=== PATIENT | male | born 1955 | race Caucasian/White ===

== ENCOUNTER 2017-10-24 12:34 | Observation (INO) | payer MEDICAID ==
[2017-10-24 12:36] VITALS: BMI 31.9
[2017-10-24] MEDS ORDERED: Sodium Chloride 0.9% 1,000 ML IV STA (12:45)
--- NOTE | 2017-10-24 13:21 | RAD ---
Date of service: 10/24/2017 HISTORY: admission COMPARISON: No prior. FINDINGS: LUNGS: No active pulmonary disease. PLEURA: No significant pleural effusion identified, no pneumothorax apparent. CARDIOVASCULAR: Normal. OSSEOUS STRUCTURES: No significant abnormalities. VISUALIZED UPPER ABDOMEN: Normal. OTHER FINDINGS: None. IMPRESSION: No active disease.
--- NOTE | 2017-10-24 13:36 | ED PDOC ---
Arrival/HPI - General Historian: Patient <Johanne Rome A - Last Filed: 10/24/17 22:26> <John Masterson - Last Filed: 10/28/17 18:10> - General Chief Complaint: Dizziness/Lightheaded Time Seen by Provider: 10/24/17 12:42 - History of Present Illness Narrative History of Present Illness (Text): 10/24/17 13:17 62yo male with pmhx of hypertension, Diabetes, hyperlipdemia who present with complaint of dizziness x 15days and head numbness/pain. He also report tinnitus. States he almost passed out today. Describes the dizziness as him been light headed. He otherwise denies chest pain, SOB, diaphoresis, focal weakness, slurred speech, visual changes, nausea, vomiting, diarrhea, URI symptoms, any other complaint. (Johanne Rome A) Past Medical History - Provider Review Nursing Documentation Reviewed: Yes - Cardiac Hx Hypertension: Yes - Pulmonary Hx Respiratory Disorders: No - Neurological Hx Neurological Disorder: No - HEENT Hx HEENT Disorder: No - Renal Hx Renal Disorder: No - Endocrine/Metabolic Hx Diabetes Mellitus Type 1: Yes - Hematological/Oncological Hx Blood Disorders: No - Integumentary Hx Dermatological Disorder: No - Musculoskeletal/Rheumatological Hx Musculoskeletal Disorders: No - Gastrointestinal Hx Gastrointestinal Disorders: No - Genitourinary/Gynecological Hx Genitourinary Disorders: No - Psychiatric Hx Psychophysiologic Disorder: No Hx Substance Use: No <Johanne Rome A - Last Filed: 10/24/17 22:26> Family/Social History - Physician Review Nursing Documentation Reviewed: Yes Family/Social History: Unknown Family HX Smoking Status: Never Smoked Hx Alcohol Use: No Hx Substance Use: No <Johanne Rome A - Last Filed: 10/24/17 22:26> Allergies/Home Meds <Johanne Rome A - Last Filed: 10/24/17 22:26> <John Masterson - Last Filed: 10/28/17 18:10> Allergies/Adverse Reactions: Allergies No Known Allergies Allergy (Verified 10/24/17 12:35) Home Medications: Home Meds Medication Instructions Recorded Confirmed Aspirin [Aspirin Chewable] 81 mg PO 10/24/17 Ergocalciferol [Drisdol 50,000 1.25 mg PO QWK 10/24/17 10/24/17 Intl Units Cap] Gabapentin [Neurontin] 600 mg PO TID 10/24/17 10/24/17 Insulin Glargine,Hum.rec.anlog 75 unit SQ HS 10/24/17 10/24/17 [Basaglar Kwikpen U-100] Insulin Lispro [Humalog Kwikpen 5 units SC ACL 10/24/17 10/24/17 U-100] Insulin Lispro [Humalog Kwikpen 10 units SC BRKDIN 10/24/17 10/24/17 U-100] Losartan Potassium [Cozaar] 100 mg PO DAILY 10/24/17 10/24/17 Meclizine HCl [Motion Sickness II] 25 mg PO Q8 PRN 10/24/17 10/24/17 Multivitamin with Iron [Tab-A-Tess 1 tab PO DAILY 10/24/17 10/24/17 with Iron] Simvastatin [Zocor] 20 mg PO HS 10/24/17 10/24/17 Review of Systems - Physician Review All systems were reviewed & negative as marked: Yes - Review of Systems Constitutional: Normal Eyes: Normal ENT: Normal Respiratory: Normal Cardiovascular: Normal Gastrointestinal: Normal Genitourinary Male: Normal Musculoskeletal: Normal Skin: Normal Neurological: Headache, Dizziness. absent: Focal Weakness, Speech Changes, Facial Droop Endocrine: Normal Hemo/Lymphatic: Normal Psychiatric: Normal <Johanne Rome A - Last Filed: 10/24/17 22:26> Physical Exam Vital Signs Reviewed: Yes Temperature: Febrile Blood Pressure: Normal Pulse: Regular Respiratory Rate: Normal Appearance: Positive for: Well-Appearing, Non-Toxic, Comfortable Pain Distress: None Mental Status: Positive for: Alert and Oriented X 3 - Systems Exam Head: Present: Atraumatic, Normocephalic Pupils: Present: PERRL Extroacular Muscles: Present: EOMI Conjunctiva: Present: Normal Mouth: Present: Moist Mucous Membranes Neck: Present: Normal Range of Motion Respiratory/Chest: Present: Clear to Auscultation, Good Air Exchange. No: Respiratory Distress, Accessory Muscle Use Cardiovascular: Present: Regular Rate and Rhythm, Normal S1, S2. No: Murmurs Abdomen: No: Tenderness, Distention, Peritoneal Signs Back: Present: Normal Inspection Upper Extremity: Present: Normal Inspection. No: Cyanosis, Edema Lower Extremity: Present: Normal Inspection. No: Edema Neurological: Present: GCS=15, CN II-XII Intact, Speech Normal, Motor Func Grossly Intact, Normal Sensory Function, Normal Cerebellar Funct, Norm Deep Tendon Reflexes, Memory Normal, Normal 2Pt Descrimination, Other (No focal neurological deificit) Skin: Present: Warm, Dry, Normal Color. No: Rashes Psychiatric: Present: Alert, Oriented x 3, Normal Insight, Normal Concentration <WildJohanne A - Last Filed: 10/24/17 22:26> Vital Signs Temp Pulse Resp BP Pulse Ox 10/24/17 17:09 98.3 F 76 19 99 10/24/17 16:32 98.0 F 62 19 164/70 H 99 10/24/17 13:03 100.1 F H 70 18 138/58 L 98 Medical Decision Making <WildJohanne A - Last Filed: 10/24/17 22:26> <John Masterson - Last Filed: 10/28/17 18:10> ED Course and Treatment: 10/24/17 22:26 62yo male who present with complaint of dizziness and headache. Labs ordered EKG CXR Head CT Meclizine 25mg 1L NS EKG Sinus dharmesh with LVH @ 55bpm. NSTEMI CXR NAD Head CT IMPRESSION: No acute intracranial findings appreciate by standard CT criteria. Age related neuro degenerative changes appear age-appropriate. Pt with multiple co morbidity. He remain neurologically deficit. Lab was unremarkable in ED. PT however have a risk factor for CAD and will need admission for Carotid US/MRI Case was DW Dr. English while he was in ED and he accepted pt in ED. He saw pt in ED Result and plan was DW the pt and he agreed. (WildJohanne A) - Lab Interpretations Microbiology Results: Microbiology Results 10/24/17 13:40 Blood-Venous Blood Culture - Preliminary NO GROWTH AFTER 4 DAYS 10/24/17 13:10 Blood-Venous Blood Culture - Preliminary NO GROWTH AFTER 4 DAYS Lab Results: 10/24/17 13:05 10/24/17 13:05 Lab Results 10/24/17 13:10: pO2 39, VBG pH 7.30 L, VBG pCO2 62.0 H, VBG HCO3 30.5 H, VBG Total CO2 32.4 H, VBG O2 Sat (Calc) 75.0 H, VBG Base Excess 2.4 H, VBG Potassium 4.0, Glucose 60 L, Lactate 1.7, FiO2 21.0, Sodium 137.0, Chloride 102.0, Venous Blood Potassium 4.0 10/24/17 13:05: PT 12.1, INR 1.06, APTT 32.1 10/24/17 13:05: Sodium 141, Potassium 4.5, Chloride 101, Carbon Dioxide 28, Anion Gap 17, BUN 16, Creatinine 0.7 L, Est GFR ( Amer) > 60, Est GFR ( Non-Af Amer) > 60, Random Glucose 60 L, Calcium 10.3, Magnesium 1.5 L, Total Bilirubin 0.6, AST 23, ALT 32, Alkaline Phosphatase 48, Lactate Dehydrogenase 473, Total Creatine Kinase 136, Troponin I < 0.01, Total Protein 7.2, Albumin 4.2, Globulin 3.0, Albumin/Globulin Ratio 1.4 10/24/17 13:05: WBC 6.3, RBC 4.58, Hgb 13.6 L, Hct 39.4 L, MCV 86.0, MCH 29.7, MCHC 34.5, RDW 13.4, Plt Count 178, MPV 10.5, Gran % 33.6 L, Lymph % (Auto) 55.7 H, [place] % (Auto) 7.5 H, Eos % (Auto) 2.6, Baso % (Auto) 0.6, Gran # 2.11, Lymph # (Auto) 3.5 H, [place] # (Auto) 0.5, Eos # (Auto) 0.2, Baso # (Auto) 0.04 - RAD Interpretation Radiology Orders: 10/24/17 12:44 CHEST PORTABLE [RAD] Stat 10/24/17 13:37 HEAD W/O CONTRAST [CT] Stat - Medication Orders Current Medication Orders: Discontinued Medications Amlodipine Besylate (Norvasc) 5 mg PO DAILY GILDARDO Last Admin: 10/26/17 09:54 Dose: 5 mg MAR Pulse and Blood Pressure Document 10/26/17 09:54 SOUSV (Rec: 10/26/17 09:54 SOUS BM[facility]OSTENDORFLP) Pulse Pulse Rate (60-90) 62 Blood Pressure Blood Pressure (100/60-150/90) 109/55 Aspirin (Aspirin Chewable) 81 mg PO DAILY [facility] Last Admin: 10/26/17 09:53 Dose: 81 mg Atorvastatin Calcium (Lipitor) 10 mg PO DIN [facility] Last Admin: 10/25/17 17:13 Dose: 10 mg Gabapentin (Neurontin) 600 mg PO TID GILDARDO PRN Reason: Protocol Last Admin: 10/26/17 09:53 Dose: 600 mg Behavioural Document 10/26/17 09:53 SOU[facility] (Rec: 10/26/17 09:53 [facility] Maintenance Maintenance Dose Yes Re-Assess: Reassess Psych Meds Document 10/26/17 10:53 SOUSV (Rec: 10/26/17 11:20 SOUSV [id number]) Reassess Psych Med Effective Sodium Chloride (Sodium Chloride 0.9%) 1,000 mls @ 999 mls/hr IV .Q1H1M STA Stop: 10/24/17 13:45 Last Admin: 10/24/17 15:09 Dose: 999 mls/hr eMAR Start Stop Document 10/24/17 15:09 [email or web address] (Rec: 10/24/17 15:09 [email or web address] [id number]) Intravenous Solution Start Date 10/24/17 Start Time 15:09 Sodium Chloride (Sodium Chloride 0.45%) 1,000 mls @ 40 mls/hr IV .Q24H [facility] Last Admin: 10/26/17 03:40 Dose: 40 mls/hr eMAR Start Stop Document 10/26/17 03:40 RM (Rec: 10/26/17 03:40 RM [id number]) Intravenous Solution Start Date 10/26/17 Start Time 03:40 End Date 10/27/17 End time 03:40 Total Infusion Time 1440 Insulin Detemir (Levemir) 15 unit SC Q12H [facility] Last Admin: 10/26/17 09:53 Dose: 15 units MAR Blood Glucose Document 10/26/17 09:53 SOUSV (Rec: 10/26/17 09:55 [facility] Blood Glucose Finger Stick Blood Glucose (70-120) 175 Subcutaneous Administrations Document 10/26/17 09:53 SOUSV (Rec: 10/26/17 09:55 [facility] Injection Site MAR Injection Site Right Arm Charges for Administration # of Subcutaneous Administrations 1 Insulin Human Regular (Humulin R Low) 0 units SC ACHS GILDARDO PRN Reason: Protocol Last Admin: 10/26/17 08:20 Dose: 1 units MAR Blood Glucose Document 10/26/17 08:20 SOUSV (Rec: 10/26/17 08:21 [facility]) Blood Glucose Finger Stick Blood Glucose (70-120) 175 Subcutaneous Administrations Document 10/26/17 08:20 SOUSV (Rec: 10/26/17 08:21 [facility]) Injection Site MAR Injection Site Right Arm Charges for Administration # of Subcutaneous Administrations 1 Meclizine HCl (Antivert) 25 mg PO STAT STA Stop: 10/24/17 15:21 Last Admin: 10/24/17 16:28 Dose: 25 mg Meclizine HCl (Antivert) 25 mg PO TID [facility] Last Admin: 10/26/17 09:53 Dose: 25 mg - PA / [employer] DEPARTMENT CHAIR / Resident Statement ANGEL has reviewed & agrees with the documentation as recorded. ANGEL has examined the patient and agrees with the treatment plan. <John Masterson - Last Filed: 10/28/17 18:10> Disposition/Present on Arrival - Present on Arrival Any Indicators Present on Arrival: No History of DVT/PE: No History of Uncontrolled Diabetes: No Urinary Catheter: No History of Decub. Ulcer: No History Surgical Site Infection Following: None - Disposition Have Diagnosis and Disposition been Completed?: Yes Disposition Time: 15:45 Patient Plan: Admission <Johanne Rome - Last Filed: 10/24/17 22:26> <John Masterson - Last Filed: 10/28/17 18:10> - Disposition Diagnosis: Near syncope Disposition: HOSPITALIZED Condition: STABLE
[2017-10-24 14:09] LABS: BASO # 0.04 K/mm3 (0.0-2.0); BASO % 0.6 % (0.0-3.0); EOS # 0.2 (0.0-0.7); EOS % 2.6 % (1.5-5.0); GRAN # 2.11 (1.4-6.5); GRAN % 33.6 % (50.0-68.0); HEMOGLOBIN 13.6 g/dL (14.0-18.0); LYMPH # 3.5 (1.2-3.4); LYMPH % 55.7 % (22.0-35.0); MEAN CORPUSCULAR HEMOGLOBIN 29.7 pg (25.0-35.0); MEAN CORPUSCULAR HGB CONC 34.5 g/dl (31.0-37.0); MEAN PLATELET VOLUME 10.5 fl (7.0-11.0); MONO # 0.5 (0.1-0.6); MONO % 7.5 % (1.0-6.0); RBC 4.58 10^6/uL (3.5-6.1); RED CELL DISTRIBUTION WIDTH 13.4 % (11.5-14.5); WHITE BLOOD COUNT 6.3 10^3/ul (4.5-11.0)
[2017-10-24 14:12] LABS: VENOUS BLOOD GAS BASE EXCESS 2.4 mmol/L (0.0-2.0); VENOUS BLOOD GAS PO2 39 mm/Hg (30-55)
[2017-10-24 14:15] LABS: INR 1.06; PARTIAL THROMBOPLASTIN TIME 32.1 Seconds (25.1-36.5); PROTHROMBIN TIME 12.1 SECONDS (9.4-12.5)
[2017-10-24 14:22] LABS: ALB/GLOB RATIO 1.4 (1.1-1.8); ALBUMIN 4.2 g/dL (3.0-4.8); ALT/SGPT 32 U/L (7-56); AST/SGOT 23 U/L (17-59); BLOOD UREA NITROGEN 16 mg/dL (7-21); CALCIUM 10.3 mg/dL (8.4-10.5); GFR NON-AFRICAN AMERICAN > 60
[2017-10-24 14:31] LABS: TROPONIN I < 0.01 ng/mL
--- NOTE | 2017-10-24 16:54 | CT ---
Date of service: 10/24/2017 PROCEDURE: CT HEAD WITHOUT CONTRAST. HISTORY: headache COMPARISON: None available. TECHNIQUE: Axial computed tomography images were obtained through the head/brain without intravenous contrast. Radiation dose: Total exam DLP = 941.07 mGy-cm. This CT exam was performed using one or more of the following dose reduction techniques: Automated exposure control, adjustment of the mA and/or kV according to patient size, and/or use of iterative reconstruction technique. FINDINGS: HEMORRHAGE: No intracranial hemorrhage. BRAIN: Good corticomedullary differentiation is seen. Proportional, mild diffuse expansion of the ventriculosulcal and cisternal spaces is appreciated with white matter lucency compatible with diffuse cerebral atrophy and chronic microangiopathy. No suspicious extra-axial fluid collection is identified and the midline brain anatomy appears grossly nonfocal as imaged. There is no mass effect throughout. VENTRICLES: Unremarkable. No hydrocephalus. CALVARIUM: Unremarkable. PARANASAL SINUSES: Unremarkable as visualized. No significant inflammatory changes. MASTOID AIR CELLS: Unremarkable as visualized. No inflammatory changes. OTHER FINDINGS: None. IMPRESSION: No acute intracranial findings appreciate by standard CT criteria. Age related neuro degenerative changes appear age-appropriate.
[2017-10-24 17:24] LABS: URINE BILIRUBIN NEGATIVE (NEGATIVE); URINE BLOOD NEGATIVE (NEGATIVE); URINE GLUCOSE (UA) NEGATIVE (NEGATIVE); URINE LEUKOCYTE ESTERASE NEGATIVE Leu/uL (NEGATIVE); URINE PROTEIN NEGATIVE mg/dL (<30 mg/dL); URINE UROBILINOGEN 0.2 E.U./dL (<1 E.U./dL)
[2017-10-24 17:25] LABS: URINE APPEARANCE CLEAR (CLEAR); URINE COLOR YELLOW (YELLOW)
[2017-10-24] MEDS: Sodium Chloride 0.45% 1,000 ML IV SCH (20:45)
[2017-10-24] MEDS: Insulin Reg-LOW-Coverage SC SCH (21:52)
[2017-10-24] MEDS ORDERED: INSULIN GLARGINE HUM REC ANLOG 30 UNIT SQ SCH (22:00)
[2017-10-24] MEDS ORDERED: [UNRECOGNIZED DRUG - OTHER] SQ SCH (22:00)
[2017-10-24] MEDS: Insulin Detemir 100 units/ml Vial (Levemir) SC SCH (22:02)
--- NOTE | 2017-10-24 23:22 | CARD ---
APPROVED REPORT Date of service: 10/24/2017 EKG Measurement Heart [id number] [id number] <Conclusion> Sinus bradycardia Minimal voltage criteria for LVH, may be normal variant Borderline ECG
--- NOTE | 2017-10-25 05:15 | HP ---
Copied To: Cliff English DO Attending MD: Cliff English DO HISTORY OF PRESENT ILLNESS: I was called to the emergency room today to see him. He is a 62-year-old man who has a 15-day history of head and numbness and pain and dizziness and ringing in his ears. He almost passed out today. He came to the emergency room with dizziness, lightheadedness. No chest pain or shortness of breath. No sweating. No focal weakness. No slurred speech. No vision changes and he got to a point where he almost passed out, so he came to the emergency room. PAST MEDICAL HISTORY: Hypertension, diabetes. FAMILY HISTORY: There is diabetes in the family. SOCIAL HISTORY: He never smoked. No alcohol. No drugs. ALLERGIES: NO KNOWN DRUG ALLERGIES. MEDICATIONS: He takes medicines for hypertension, diabetes. There is no recollection of any of his medications. REVIEW OF SYSTEMS: No acute vision or hearing changes, just dizzy and lightheadedness. No sore throat. No shortness of breath or cough. No chest pain or palpitations. No nausea, vomiting, constipation or diarrhea. No problems urinating. No back pain. No skin issues that he knows of. There is a headache and dizziness. No focal weakness. No speech changes. No facial droop. No anxiety or depression. PHYSICAL EXAMINATION: VITAL SIGNS: He had a 100.1 temperature in the ER, 70 pulse, 18 respiratory rate, 138/58 blood pressure, 98% O2 sat. GENERAL: [facility] He is well-appearing, nontoxic, comfortable. Alert and oriented x3. HEENT: He is atraumatic, normocephalic. Extraocular muscles are intact. Pupils are equal and reactive to light and accommodation. Throat is moist. NECK: Supple. Normal range of motion of the neck. HEART: Regular rate. Normal S1, S2. LUNGS: Clear to auscultation bilaterally. No wheezes, rhonchi or rales. ABDOMEN: Soft, nontender. Positive bowel sounds. No guarding. No rebound. No CVA tenderness. EXTREMITIES: Have no edema. He moves all four extremities. NEUROLOGIC: GCS is 15. Cranial nerves II through XII grossly intact. Speech is normal. Grossly intact functional motor. SKIN: For the most part is warm and dry. No rashes or ulcers appreciated. LYMPHATICS: Thyroid midline. No palpable lymphadenopathy appreciated. PSYCHIATRIC: Alert and oriented x3. LABORATORY DATA: He has a white count of 6.3, 13.6 hemoglobin, 39.4 hematocrit with 178 platelets. Sodium is 141, potassium 4.5, carbon dioxide 28, BUN 16, creatinine 0.7, GFR is greater than 60, sugar is 60 low, calcium is 10.3, magnesium 1.5, total bili is 0.6, AST is 23, ALT is 32, alkaline phosphatase 48, lactate dehydrogenase is 473, total creatine kinase is 136. Troponin I is less than 0.01. Total protein is 7.2, albumin is 4.2, globulin 3. Chest x-ray was clean. CAT scan of the head was clean. IMPRESSION AND PLAN: He is here for near syncope. He does have IV fluids. He has a consult with Cardiology and Neurology. He is on IV fluids, meclizine, insulin coverage, Norvasc for blood pressure. MRI of the brain. He is on a heart healthy diet. We will check his labs tomorrow. He is on observation. Hopefully we will clear him by tomorrow. Hopefully we will not find anything. Cliff English, DO : 10/24/2017 19:31:09
[2017-10-25 06:46] LABS: HEMOGLOBIN 13.6 g/dL (14.0-18.0); MEAN CELL VOLUME 85.9 fl (80.0-105.0); MEAN CORPUSCULAR HEMOGLOBIN 29.4 pg (25.0-35.0); MEAN CORPUSCULAR HGB CONC 34.3 g/dl (31.0-37.0); MEAN PLATELET VOLUME 10.4 fl (7.0-11.0); RBC 4.62 10^6/uL (3.5-6.1); RED CELL DISTRIBUTION WIDTH 13.3 % (11.5-14.5); WHITE BLOOD COUNT 4.8 10^3/ul (4.5-11.0)
[2017-10-25 07:18] LABS: ALB/GLOB RATIO 1.2 (1.1-1.8); ALT/SGPT 29 U/L (7-56); AST/SGOT 35 U/L (17-59); BLOOD UREA NITROGEN 13 mg/dL (7-21); CALCIUM 9.6 mg/dL (8.4-10.5); GFR NON-AFRICAN AMERICAN > 60
--- NOTE | 2017-10-25 07:53 | DS ---
Copied To: Cliff English DO Attending MD: Cliff English DO I saw him resting comfortably in bed this morning. He is doing much better than when he came in. He is on IV fluids, Antivert, aspirin, insulin coverage, Levemir, Lipitor, Neurontin, Norvasc and he is less dizzy. OBJECTIVE: VITAL SIGNS: He has a 97.7 temperature, 71 pulse, 165/75 blood pressure, 18 respiratory rate, 98% O2 sat on room air. HEENT: His head is atraumatic, normocephalic. He is looking at me, talking fine. HEART: Regular rate. LUNGS: Decreased breath sounds, but clear. ABDOMEN: Soft. EXTREMITIES: No edema. DATA: He has a white count of 6.3, hemoglobin 13.6, hematocrit 39.4, platelets of 178. He has a 141 sodium, potassium 4.5, BUN 16, creatinine 0.7. His sugars are 314, 281 and 233, they are coming down nicely. Calcium is 10.3, magnesium 1.5, total bili is 0.6, AST is 23, ALT 32, alk phos 48, lactate dehydrogenase is 473, total creatinine kinase is 136. Troponin I is less than 0.01. Total protein 7.2. His urine was clean. He has consults with Neurology and Cardiology. If they say he can go today and if the MRI is fine, I will discharge him later this afternoon. He is here for near-syncope and I think it is resolved and we will get the opinions of the estimating engineer and then, neurologist. Cliff English DO
[2017-10-25 08:15] VITALS: RESP 20
--- NOTE | 2017-10-25 08:18 | CON ---
Copied To: Jerry Wasserman MD Attending MD: Jerry Wasserman MD DATE: 10/24/2017 HISTORY OF PRESENT ILLNESS: This is a 62-year-old male with a past medical history of hypertension, diabetes, hyperlipidemia. Came with a complaint of dizziness for the last 2 weeks and also numbness in the head and tinnitus and patient says he nearly passed out. He hardly can walk 1 or 2 blocks, has to take rest and described dizziness being lightheaded and denies any chest pain. No weakness. No slurring of speech. No visual problem. PAST MEDICAL HISTORY: As above, hypertension, diabetes, hyperlipidemia. ALLERGIES: NO KNOWN DRUG ALLERGIES. REVIEW OF SYSTEMS: Ten-point review of systems was negative except dizziness. PHYSICAL EXAMINATION: VITAL SIGNS: Blood pressure 138/58. HEENT: Normocephalic, atraumatic. NECK: Supple. NEUROLOGIC: Alert, awake, orientated to self and place. Cranial nerves II through XII were tested. Pupils reactive. EOM intact. Visual mdcermott full. No facial asymmetry. Tongue midline. Motor examination: Moves all the extremities equally. Tone normal. Deep tendon reflexes 1+. Both plantars are downgoing. Sensory appears intact. Cerebellar, gait normal. IMPRESSION: Lightheadedness and dizziness, possibly benign positional and computerized axial tomography scan of the head was done, which was reported negative. Patient is already on meclizine, gabapentin, and diabetic medications, possibly peripheral neuropathy secondary to diabetes. PLAN: Continue present management. We will follow up. Jerry Wasserman MD
[2017-10-25] MEDS: Insulin Reg-LOW-Coverage SC SCH ×4 (08:23→21:45)
[2017-10-25] MEDS: Insulin Detemir 100 units/ml Vial (Levemir) SC SCH ×2 (10:16→21:37)
--- NOTE | 2017-10-25 14:19 | CON ---
Copied To: Dimitry Espinoza MD Attending MD: Dimitry Espinoza MD DATE: 10/25/2017 HISTORY: The patient is a the patient is a 62-year-old male who presents with dizziness. The patient suffers from hypertension, diabetes mellitus and hyperlipidemia. He denies chest pain, denies shortness of breath. PAST MEDICAL HISTORY: Notable for diabetes mellitus and hypertension as well as hypercholesterolemia. SOCIAL HISTORY: The patient admits to smoking. DATA: Hemoglobin of 13.6, glucose is 237. BUN and creatinine unremarkable. Troponin is negative x1. EKG reveals sinus bradycardia with no acute changes. IMPRESSION: 1. Status post dizziness. 2. Hypertension. 3. Hypercholesterolemia. 4. Diabetes mellitus. 5. Hypertension. Given these findings, we will arrange for an outpatient stress test and echocardiogram. I will change his antihypertensive medications to Norvasc instead of lisinopril in such high doses. Dimitry Espinoza MD
[2017-10-25 16:20] VITALS: O2SAT 96
[2017-10-25] MEDS: Sodium Chloride 0.45% 1,000 ML IV SCH (22:52)
[2017-10-26] MEDS: Sodium Chloride 0.45% 1,000 ML IV SCH (03:40)
[2017-10-26 06:43] VITALS: BP 109/55; TEMP 98.5
[2017-10-26] MEDS: Insulin Reg-LOW-Coverage SC SCH (08:20)
[2017-10-26] MEDS: Insulin Detemir 100 units/ml Vial (Levemir) SC SCH (09:53)
[2017-10-26 10:22] VITALS: PULSE 80
--- NOTE | 2017-10-26 10:38 | MRI ---
Date of service: 10/25/2017 PROCEDURE: MRI BRAIN WITHOUT CONTRAST HISTORY: near syncope COMPARISON: 10/24/2017 TECHNIQUE: Multiplanar, multisequence MR images of the brain were obtained without intravenous contrast enhancement. FINDINGS: HEMORRHAGE: None DWI: No evidence of an acute or early subacute infarction. BRAIN PARENCHYMA: No mass effect or edema. No atrophy or chronic microvascular ischemic changes. VENTRICLES: Unremarkable. No hydrocephalus. CRANIUM: Unremarkable. ORBITS: Grossly unremarkable. PARANASAL SINUSES/MASTOIDS: There is a heterogeneous lesion in the septum of the sphenoid sinus. The etiology and significance uncertain. Followup may be indicated VASCULAR SYSTEM: Skull base flow voids intact. OTHER FINDINGS: None. IMPRESSION: No acute intracranial findings. Bony lesion in the septum of the sphenoid sinus, etiology uncertain
--- NOTE | 2017-10-26 13:12 | DS ---
Copied To: Cliff English DO Attending MD: Cliff English DO He is doing better than when he came in. He is walking around the room well. Dizziness has definitely subsided. We are waiting for an MRI to come back. He is going to have an outpatient stress test. He has got multiple tests to take with his primary care doctor, they showed me today, they did not show me when he first came in. He will go home on his regular medications that he came in, he did not remember them at that time, now he knows them. We are waiting for an MRI that was done late last night for result, hopefully we will get that before 3 o'clock today. He is, otherwise, eating and walking around the room without any problems. PHYSICAL EXAMINATION: VITAL SIGNS: He has 98.5 temp, 53 pulse, 109/55 blood pressure, 20 respiratory rate, 96% O2 sat. HEENT: Head is atraumatic, normocephalic. HEART: Regular rate. LUNGS: Clear to auscultation. ABDOMEN: Soft. EXTREMITIES: No edema. He is not dizzy. No chest pain. No shortness of breath. No abdominal pain. He is comfortable. He is going to follow up with his outpatient primary care doctor. LABORATORY DATA: He has a white count of 4.8, hemoglobin 13.6, hematocrit 39.7, platelets 158. INR is 1.06. The last blood sugar was 175. He has 139 sodium, potassium 4.6, BUN 13, creatinine 0.7, GFR is greater than 60. Sugar is total bili is 0.7, AST is 35, ALT is 29, alk phos 55. Troponin I was less than 0.01. Total protein was 7.4. Urine is clean. He was seen by Neuro and Cardiology. He is on observation. We will be discharging him today. I am sorry, the MRI could not have been done quick enough, it is also not read yet, it was done late last night, I held up my yesterday's discharge, but will be discharged today. He will follow up with his primary care doctor this week, today Sunday or next Sunday or Sunday. Cliff English DO MTDD
== END 2017-10-26 11:29 | disposition home or self-care (01) ==
LOC: ED 12:34 → ERH 15:44 → 3RNO 17:53
PROVIDERS: ADMIT Family Medicine; ATTEND Family Medicine
DX: R42 Dizziness and giddiness (principal); H93.19 Tinnitus, unspecified ear; R55 Syncope and collapse; I10 Essential (primary) hypertension; E10.9 Type 1 diabetes mellitus without complications; E78.5 Hyperlipidemia, unspecified; E78.00 Pure hypercholesterolemia, unspecified; F17.200 Nicotine dependence, unspecified, uncomplicated; Z79.4 Long term (current) use of insulin; Z83.3 Family history of diabetes mellitus
CPT/HCPCS: 36415; 70450; 70551; 71045; 80053; 81003; 82550; 82803; 82948; 83615; 83735; 84484; 85025; 85027; 85610; 85730; 87040; 93005; 99285; G0378; J7030